=== PATIENT | male | born 1960 | race Caucasian/White ===

== ENCOUNTER 2021-02-28 01:39 | Emergency (ER) | payer SELFPAY ==
[~2021-02-28] VITALS: Ht 165.1 cm; Wt 75.0 kg
[2021-02-28 03:31] VITALS: BP 145/89
[2021-02-28] MEDS ORDERED: LIDOCAINE 1% PF 5 ML VIAL. INJ ONE (03:45)
[2021-02-28] MEDS ORDERED: OFLO5DRO7 AD (04:23)
--- NOTE | 2021-02-28 04:28 | PHYS DOC ---
Past Medical History Past Surgical History: Other Additional Past Surgical Histo: HERNIA Smoking Status: Current Every Day Smoker Alcohol Use: None General Adult EDM: Chief Complaint: FOREIGNBODY EAR HPI: HPI: 60-year-old male past medical history of tobacco use, presents the ED with his female friend, (patient consents to his/her/their knowledge and involvement in pts' medical care), complains of intermittently, moving bug in his right ear that started around 1 AM this morning. Denies associated hearing loss or dizziness. Attempted using a Q-tip to kill the insect reports mild bleeding from the top of his ear. Reports history of chronic cough from smoking. Is not Covid vaccinated. Reports his tetanus is up to date. Review of Systems: Review of Systems: Constitutional: Denies fever or chills. [] Eyes: Denies change in visual acuity. [] HENT: Denies nasal congestion or sore throat. [] Respiratory: Denies hemoptysis or shortness of breath. [] Cardiovascular: Denies chest pain or edema. [] GI: Denies vomiting or diarrhea Integument: Denies rash or diaphoresis Neurologic: Denies focal weakness or sensory changes. [] Psychiatric: Denies depression or anxiety. [] Heart Score: C/O Chest Pain: No Risk Factors: Risk Factors: DM, Current or recent (<one month) smoker, HTN, HLP, family history of CAD, obesity. Risk Scores: Score 0 - 3: 2.5% MACE over next 6 weeks - Discharge Home Score 4 - 6: 20.3% MACE over next 6 weeks - Admit for Clinical Observation Score 7 - 10: 72.7% MACE over next 6 weeks - Early Invasive Strategies Current Medications: Current Medications Medications (Trade) Dose Ordered Sig/Yarelis Start Time Stop Time Status Last Admin Dose Admin Lidocaine HCl (Xylocaine-Mpf 1% 5ml Vial) 5 ml 1X ONCE 02/28/21 03:45 02/28/21 03:46 DC 02/28/21 03:45 5 ML Allergies: Allergies: Allergies Coded Allergies Type Severity Reaction Last Updated Verified No Known Drug Allergies 02/28/21 No Physical Exam: PE: Constitutional: Well developed, well nourished, no acute distress, non-toxic appearance. HENT: Normocephalic, atraumatic, normal left ear/TM, bug in ear canal-not moving, cannot visualize any right TM perforation although ear canal is curved medially, scant blood at 6 o'clock position Eyes: EOMI, conjunctiva normal, no discharge. Neck: Normal range of motion, supple, Cardiovascular: S1/2 present, regular rhythm Lungs & Thorax: Speaking in full sentences, bilateral equal chest rise, no tachypnea or increased work of breathing, dry cough in ed Skin: Warm, dry, no erythema, no rash. [] Extremities: No tenderness, no cyanosis, Neurologic: Alert and oriented X 3, no focal deficits noted. [] Psychologic: Affect normal, judgement normal, mood normal. [] Current Patient Data: Vital Signs: Vital Signs Date Time Temp Pulse Resp B/P (MAP) Pulse Ox O2 Delivery O2 Flow Rate FiO2 02/28/21 03:31 97.6 87 20 145/89 (107) 97 Room Air 97.6 EKG: EKG: [] Radiology/Procedures: Radiology/Procedures: [] Course & Med Decision Making: Course & Med Decision Making Pertinent Labs and Imaging studies reviewed. (See chart for details) Central foreign body in right ear canal that was soaked in lidocaine. Appears to be a rosario-poly and is curved in nature. Was removed with alligator forceps and then irrigated after - wax removed. Cannot appreciate a tympanic membrane perforation although TM is only visualized approximately 70%. Will treat with antibiotic eardrops. Patient denies any hearing loss after irrigation and foreign body removal. Will discharge home with strict ED return precautions were given for decreased hearing, dizziness or vertigo. Encouraged urgent outpatient follow-up with PMD for routine care and ENT for any hearing loss. Life-threatening processes were considered but are low suspicion at this time, given history, physical exam and ED workup. Pt was educated on all prescription medications and adverse effects. All patient's questions were answered and pt was stable at time of discharge. Life/limb-threatening differential includes but is not limited to, auricular hematoma or perichondritis, malignant otitis externa, otitis externa or media, otomycosis, bullous myringitis, mastoiditis, hearing loss or vestibular disorder, tympanic membrane rupture/perforation/barotrauma, herpes zoster oticus, contact dermatitis, cholesteatoma, meningitis/encephalitis, brain abscess or venous/cavernous/cerebral sinus thrombosis. I have spoken with the patient and/or caregivers. I explained the patient's condition, diagnoses and treatment plan based on the information available to me at this time. I have answered the patient and/or caregiver's questions and addressed any concerns. The patient and/or caregivers have a good understanding of patient's diagnosis, condition and treatment plan as can be expected at this point. Vital signs have been stable. Patient's condition is stable and appropriate for discharge from the emergency department. Patient will pursue further outpatient evaluation with primary care physician or other designated or consulting physician as outlined in the discharge instru ctions. The patient and/or caregivers are agreeable to this plan of care and follow-up instructions have been explained in detail. The patient and/or caregivers have received these instructions in written form and have expressed an understanding of the discharge instructions. The patient and/or caregivers are aware that any significant change of condition or worsening of symptoms should prompt immediate return to this or the closest emergency department or call to 911. Hayley Disclaimer: Hayley Disclaimer: This electronic medical record was generated, in whole or in part, using a voice recognition dictation system. Departure Departure Impression: Primary Impression: Foreign body of ear, right Disposition: 01 HOME / SELF CARE / HOMELESS Condition: STABLE Referrals: NO PCP (PCP) Follow-up with your primary care physician in 24 to 48 hours OR FOLLOW UP WITH FAMILY MEDICINE: [address] [facility], [facility] [address] [place] [address] Patient Instructions: Ear Foreign Body Additional Instructions: FOLLOW UP WITH ENT: FOR DEFINITIVE MANAGEMENT of ear injury/foreign body extraction Otolaryngology [address] [facility], [address] [place] [address] women's studies professor [facility] [address] [facility] [address] [place] [address] EMERGENCY DEPARTMENT GENERAL DISCHARGE INSTRUCTIONS Thank you for coming to [facility] Emergency Department (ED) today and trusting us with you care. We trust that you had a positive experience in our Emergency Department. If you wish to speak to the department management, you may call the Director at [phone]. YOUR FOLLOW UP INSTRUCTIONS ARE FOLLOWS: 1. Do you have a private Doctor? If you do not have a private doctor, please ask for a resource list of physicians or clinics that may be able to assist you with follow up care. 2. The Emergency Physicain has interpreted your x-rays. The X-Ray specialist will also review them. If there is a change in the findings, you will be notified in 48 hours when at all possible. 3. A lab test or culture has been done, your results will be reviewed and you will be notified if you need a change in treatment. ADDITIONAL INSTRUCTIONS AND INFORMATION: 1. Your care today has been supervised by a physician who is specially trained in emergency care. Many problems require more than one evaluation for a complete diagnosis and treatment. We recommend that you schedule your follow up appointment as recommended to ensure complete treatment of you illness or injury. If you are unable to obtain follow up care and continue to have a problem, or if your condition worsens, we recommend that you return to the ED. 2. We are not able to safely determine your condition over the phone nor are we able to give sound medical advice over the phone. For these safety reasons, if you call for medical advice we will ask you to come to the ED for further evaluation. 3. If you have any questions regarding these discharge instructions please call the ED at [phone]. SAFETY INFORMATION: In the interest of safety, wellness, and injury prevention; we encourage you to wear your sealbelt, if you smoke; quite smoking, and we encourage family to use a protective helmet for bicycling and other sporting events that present an increased risk for head injury. IF YOUR SYMPTOMS WORSEN OR NEW SYMPTOMS DEVELOP, OR YOU HAVE CONCERNS ABOUT YOUR CONDITION; OR IF YOUR CONDITION WORSENS WHILE YOU ARE WAITING FOR YOUR FOLLOW UP APPOINTMENT; EITHER CONTACT YOUR PRIMARY CARE DOCTOR, THE PHYSICIAN WHOSE NAME AND NUMBER YOU WERE GIVEN, OR RETURN TO THE ED IMMEDIATELY. Scripts Ofloxacin (OFLOXACIN) 5 Ml Drops 5 DROP AD BID for 10 Days, #10 ML 0 Refills Prov: NERISSA LION DO 02/28/21 NERISSA LION DO Feb 28, 2021 04:28
== END 2021-02-28 04:49 | disposition home or self-care (01) ==
LOC: ER 01:39
DX: T16.1XXA Foreign body in right ear, initial encounter (principal); F17.200 Nicotine dependence, unspecified, uncomplicated; X58.XXXA Exposure to other specified factors, initial encounter; Y93.89 Activity, other specified; Y92.89 Other specified places as the place of occurrence of the external cause; Y99.8 Other external cause status
CPT/HCPCS: 69200; 99284; J3490